=== PATIENT | female | born 1955 | race Caucasian/White ===

== ENCOUNTER 2019-01-28 14:18 | Emergency (ER) | payer OTHER ==
[~2019-01-28] VITALS: Ht 154.9 cm; Wt 74.4 kg
[2019-01-28] MEDS ORDERED: LONITEN2.5 MG (15:00)
[2019-01-28] MEDS ORDERED: DYMISTA NASAL S23 GM (15:00)
== END 2019-01-28 22:38 | disposition home or self-care (01) ==
LOC: ER 14:18
DX: S80.01XA Contusion of right knee, initial encounter (principal); W01.198A Fall on same level from slipping, tripping and stumbling with subsequent striking against other object, initial encounter; Y93.89 Activity, other specified; Y92.59 Other trade areas as the place of occurrence of the external cause; Y99.8 Other external cause status